=== PATIENT | male | born 1990 | race African-American/Black ===

== ENCOUNTER 2018-11-22 21:47 | Emergency (ER) | payer SELFPAY ==
[~2018-11-22] VITALS: Ht 175.3 cm; Wt 72.6 kg
[2018-11-22 22:02] VITALS: BP 129/73
== END 2018-11-22 22:49 | disposition home or self-care (01) ==
LOC: ER 21:51
DX: M79.10 Myalgia, unspecified site (principal); F12.90 Cannabis use, unspecified, uncomplicated; V49.69XA Unspecified car occupant injured in collision with other motor vehicles in traffic accident, initial encounter; Y93.89 Activity, other specified; Y92.413 State road as the place of occurrence of the external cause; Y99.8 Other external cause status